=== PATIENT | male | born 1980 | race Caucasian/White ===

== ENCOUNTER → 2017-10-23 | Outpatient (CLI) | payer OTHER ==
[2017-10-25 12:55] LABS: HEPATITIS C VIRUS ABY INDEX > 11.0 INDEX (<0.8)
[2017-10-30 00:07] LABS: HCV RNA NAA QUALITATIVE Positive (Negative)
== END ==
LOC: M WUC 16:28
DX: F11.20 Opioid dependence, uncomplicated (principal)
CPT/HCPCS: 86803

== ENCOUNTER → 2017-11-20 | Outpatient (CLI) | payer OTHER ==
[2017-11-20 17:34] LABS: ALBUMIN 3.9 GM/DL (3.2-5.2); ALBUMIN/GLOBULIN RATIO 1.15 (1.00-1.93); ALKALINE PHOSPHATASE 116 U/L (45-117); ALT/SGPT 55 U/L (12-78); AST/SGOT 52 U/L (7-37); BILIRUBIN,DIRECT 0.3 MG/DL (0.0-0.2); TOTAL PROTEIN 7.3 GM/DL (6.4-8.2)
[2017-11-27 00:07] LABS: HEPATITIS C QUANTITATION 44170 IU/mL (.); HEPATITIS C VIRUS GENOTYPE 3 (.)
== END ==
LOC: M WUC 14:03
DX: B18.2 Chronic viral hepatitis C (principal)
CPT/HCPCS: 80076

== ENCOUNTER → 2020-03-25 | Outpatient (REF) | payer BC, OTHER ==
[~2020-03-25] MED LIST: AMBI10TA OR; HALO1TAB21 OR
== END ==
LOC: M LAB REF 11:51
PROVIDERS: ATTEND Physician Assistant
DX: R05 Cough (principal); R53.81 Other malaise; R51.9 Headache, unspecified; R06.02 Shortness of breath